=== PATIENT | male | born 1985 | race Caucasian/White ===

== ENCOUNTER 2018-07-01 10:25 | Emergency (ER) | payer OTHER, SELFPAY ==
[~2018-07-01] VITALS: Ht 172.7 cm; Wt 81.8 kg
[2018-07-01] MEDS ORDERED: VALA1TAB2 PO (11:46)
[2018-07-01 11:51] VITALS: BP 119/68
[2018-07-01 12:50] LABS: CHLAMYDIA DNA AMPLIFICATION NEGATIVE (NEGATIVE); GC DNA AMPLIFICATION NEGATIVE (NEGATIVE)
== END 2018-07-01 11:52 | disposition home or self-care (01) ==
LOC: M ED 10:25
DX: R23.8 Other skin changes (principal); N48.89 Other specified disorders of penis